=== PATIENT | male | born 1990 | race Caucasian/White ===

== ENCOUNTER 2020-05-16 13:41 | Inpatient (IN) | payer BC, OTHER ==
--- NOTE | 2020-05-16 14:03 | BHS.RME ---
Substance Use & Tx History - Substance Use History Alcohol Substance amount: 1-1.5 pints Frequency of use: Daily Substance route: Oral Date of Last Use: 05/16/20 Nicotine Substance amount: vapes 5% Frequency of use: Daily Substance route: Smoking Date of Last Use: 05/16/20 Physical/Psych/Mental Status - Behavior General Behavior: Decreased activity Eye Contact: Normal - Cooperativeness Cooperativeness: Cooperative - Thinking Thought Processes: Tight Thought content: Future oriented - Physical Health Problems Is patient presently having any pain?: No Does patient presently have any injuries (include location): No Does patient currently have a fever: No CIWA Nausea/Vomitin Muscle Tremors: 4-Moderate,w/Arms Extend Anxiety: 0-No Anxiety, at Ease Agitation: 0-Normal Activity Paroxysmal Sweats: 3 Orientation: 2-Disoriented Date<2 days Tacttile Disturbances: 0-None Auditory Disturbances: 0-None Visual Disturbances: 0-None Headache: 0-None Present CIWA-Ar Total Score: 12
[2020-05-16] MEDS ORDERED: METHOCARBAMOL 500 MG TABLET PO PRN (16:09)
[2020-05-16] MEDS ORDERED: MAG HYDROX/AL HYDROX/SIMETH 30 ML UNIT-DOSE CUP PO PRN (16:09)
[2020-05-16] MEDS ORDERED: ACETAMINOPHEN 325 MG TABLET (FP) PO PRN ×2 (16:09)
[2020-05-16] MEDS ORDERED: ONDANSETRON *ODT* 4 MG TABLET SL PRN (16:09)
[2020-05-16] MEDS ORDERED: MAGNESIUM HYDROX 2400MG/30ML ORAL SUSPENSION 30 ML CUP PO PRN (16:09)
[2020-05-16] MEDS ORDERED: MAGNESIUM CITRATE 300 ML BOTTLE PO PRN (16:09)
[2020-05-16] MEDS ORDERED: IBUPROFEN 400 MG TABLET (FP) PO PRN (16:09)
[2020-05-16] MEDS ORDERED: BISMUTH SUBSALICYLATE 524 MG/30 ML UD PO PRN (16:09)
[2020-05-16] MEDS ORDERED: MENTHOL/PHENOL 1 EACH UD MM PRN (16:09)
--- NOTE | 2020-05-16 16:15 | HP ---
CIWA Score Nausea/Vomitin-No Nausea/No Vomiting Muscle Tremors: 4-Moderate,w/Arms Extend Anxiety: 4-Mod. Anxious/Guarded Agitation: 4-Moderately Restless Paroxysmal Sweats: 2 Orientation: 2-Disoriented Date<2 days Tacttile Disturbances: 0-None Auditory Disturbances: 0-None Visual Disturbances: 0-None Headache: 3-Moderate CIWA-Ar Total Score: 19 - Admission Criteria OASAS Guidelines: Admission for Medically Managed Detox: Requires at least one of the followin. CIWA greater than 12 2. Seizures within the past 24 hours 3. Delirium tremens within the past 24 hours 4. Hallucinations within the past 24 hours 5. Acute intervention needed for co occurring medical disorder 6. Acute intervention needed for co occurring psychiatric disorder 7. Severe withdrawal that cannot be handled at a lower level of care (continued vomiting, continued diarrhea, abnormal vital signs) requiring intravenous medication and/or fluids 8. Admission ROS BHS - HPI Allergies/Adverse Reactions: Allergies Allergy/AdvReac Type Severity Reaction Status Date / Time No Known Allergies Allergy Verified 05/16/20 16:09 History of Present Illness: 30 y.o. male requesting detox from alcohol us e, reports 1 bottle whiskey /day , beer in th mornings before the store opens, reports awakening w/ tremors , has been drinking increasingly more since 2 months ago . Latest use today , current MILY 0.129 , denies seizures, + blackouts , reports falls while intoxicated , most recently 2 weeks ago no injuries . DUI/ DWI in the past . heroin - stopped 2018 , first age of use 25 cocaine intermittently tobacco : vaping PMHX : denies PSHX : denies PSych : depression , denies SI / HI Exam Limitations: Clinical Condition, Intoxication - Review of Systems Constitutional: Loss of Appetite EENT: reports: Other (glasses) Respiratory: reports: No Symptoms reported Cardiac: reports: No Symptoms Reported GI: reports: Diarrhea (after drinking beer), Poor Appetite : reports: No Symptoms Reported Musculoskeletal: reports: No Symptoms Reported Integumentary: reports: See HPI (track matta from remoe IVDU) Neuro: reports: Headache, Tremors Endocrine: reports: No Symptoms Reported Hematology: reports: No Symptoms Reported Psychiatric: reports: Agitated, Anxious, Depressed Patient History - Smoking Cessation Smoking history: Former smoker Have you smoked in the past 12 months: No Initiated information on smoking cessation: No - Substances abused Alcohol Substance route: Oral Frequency: Daily Amount used: 1 bottle of whisky Age of first use: 13 Date of last use: 05/16/20 Admission Physical Exam S - Physical General Appearance: Yes: Moderate Distress, Severe Distress, Intoxicated, Tremorous, Anxious HEENTM: Yes: EOMI, Hearing grossly Normal, Normocephalic, Normal Voice Respiratory: Yes: Chest Non-Tender, Lungs Clear, Normal Breath Sounds, No Respiratory Distress, No Accessory Muscle Use Neck: Yes: No masses,lesions,Nodules, Trachea in good position Cardiology: Yes: Regular Rhythm, Regular Rate, S1, S2, Tachycardia Abdominal: Yes: Soft, Tenderness (LUQ mild discomfort w/ palpation) Back: Yes: Normal Inspection Musculoskeletal: Yes: Gait Steady Extremities: Yes: Normal Inspection, Normal Range of Motion, Non-Tender, Tremors Neurological: Yes: Alert, Motor Strength 5/5, Depressed Affect Integumentary: Yes: Warm - Diagnostic (1) Alcohol intoxication Current Visit: Yes Status: Acute Qualifiers: Complication of substance-induced condition: uncomplicated Qualified Code(s): F10.920 - Alcohol use, unspecified with intoxication, uncomplicated Breathalyzer - Breathalyzer Breathalyzer: 0.129 Urine Drug Screen - Test Device Lot number: [id number] Expiration date: 07/03/21 - Control Is test valid?: Yes - Results Drug screen NEGATIVE: Yes Inpatient Rehab Admission - Rehab Decision to Admit Inpatient rehab admission?: No
[2020-05-16] MEDS ORDERED: METOPROLOL TARTRATE 25 MG TABLET (FP) PO ONE (17:30)
[2020-05-16] MEDS: chlordiazePOXIDE HCL 25 MG CAPSULE PO SCH ×2 (17:32→22:12)
[2020-05-16] MEDS: chlordiazePOXIDE HCL 25 MG CAPSULE PO PRN (19:30)
[2020-05-16] MEDS: MELATONIN 5 MG TABLETS PO SCH (22:12)
[2020-05-16] MEDS: THIAMINE HCL 100 MG TABLET (FP) PO SCH (22:12)
[2020-05-17] MEDS: chlordiazePOXIDE HCL 25 MG CAPSULE PO SCH ×4 (05:23→22:01)
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
--- NOTE | 2020-05-17 09:44 | EKG ---
Test Reason : Blood Pressure : / mmHG Vent. Rate : 090 BPM Atrial Rate : 090 BPM P-R Int : 134 ms QRS Dur : 086 ms QT Int : 346 ms P-R-T Axes : 069 064 026 degrees QTc Int : 423 ms NORMAL SINUS RHYTHM NONSPECIFIC T WAVE ABNORMALITY ABNORMAL ECG NO PREVIOUS ECGS AVAILABLE Confirmed by MD DANIA, KHOA ([id number]) on 05/17/2020 9:43:59 AM Referred By: Confirmed By:KHOA NAJERA MD
--- NOTE | 2020-05-17 10:02 | PN ---
S CIWA - CIWA Score Nausea/Vomitin-Mild Nausea/No Vomiting Muscle Tremors: 4-Moderate,w/Arms Extend Anxiety: 4-Mod. Anxious/Guarded Agitation: 0-Normal Activity Paroxysmal Sweats: 2 Orientation: 0-Oriented Tacttile Disturbances: 0-None Auditory Disturbances: 0-None Visual Disturbances: 2-Mild Sensitivity Headache: 1-Very Mild CIWA-Ar Total Score: 14 BHS Progress Note (SOAP) Subjective: 30 years old male admitted on 05/16/20 for alcohol withdrawal sx management treating with librium detox regiment feeling ok today ate breakfast in room social with peers in day room less tremor than yesterday encourage to discuss aftercare with staff as next level of alcohol recovery Objective: 05/17/20 10:01 Vital Signs - 24 hr 05/16/20 05/16/20 05/16/20 16:27 17:19 18:27 Temperature 98.4 F 97.8 F Pulse Rate 99 H 99 H Respiratory 16 19 Rate Blood Pressure 148/88 135/85 O2 Sat by Pulse 99 98 Oximetry (%) 05/16/20 05/16/20 05/17/20 19:28 20:48 06:11 Temperature 97.3 F L 97.1 F L Pulse Rate 86 75 56 L Respiratory 19 18 18 Rate Blood Pressure 141/84 134/76 124/62 O2 Sat by Pulse 95 100 Oximetry (%) 05/17/20 08:53 Temperature 97.3 F L Pulse Rate 81 Respiratory 20 Rate Blood Pressure 121/62 O2 Sat by Pulse Oximetry (%) 05/17/20 10:02 lab pending Assessment: 05/17/20 10:02 alcohol withdrawal Plan: librium regiment
[2020-05-17] MEDS: PRENATAL VITAMINS W/ FOLIC ACID TABLET (FP) PO SCH (10:07)
[2020-05-17 11:16] LABS: HEMATOCRIT 40.8 % (35.4-49); HEMOGLOBIN 13.4 GM/dL (11.7-16.9); MCH 30.2 pg (25.7-33.7); MCHC 32.9 g/dl (32.0-35.9); MEAN CELL VOLUME 91.8 fl (80-96); MEAN PLT VOLUME 7.6 fl (7.5-11.1); PLATELET COUNT 357 K/MM3 (134-434); RBC 4.45 M/mm3 (4.00-5.60); RDW 14.5 % (11.9-15.9); WHITE BLOOD COUNT 6.5 K/mm3 (4.0-10.0)
[2020-05-17] MEDS ORDERED: NICOTINE POLACRILEX 4 MG GUM BUC PRN (11:38)
[2020-05-17 11:52] LABS: ALBUMIN 3.2 g/dl (3.4-5.0); BILIRUBIN,TOTAL 0.9 mg/dL (0.2-1); BLOOD UREA NITROGEN 11.5 mg/dL (7-18); CALCIUM 8.3 mg/dL (8.5-10.1); CREATININE 0.9 mg/dL (0.55-1.3); POTASSIUM 4.2 mmol/L (3.5-5.1); TOT PROT 6.2 g/dl (6.4-8.2)
[2020-05-17] MEDS: NICOTINE 21 MG/24 HOURS TOPICAL PATCH TD SCH (12:28)
[2020-05-17] MEDS: chlordiazePOXIDE HCL 25 MG CAPSULE PO PRN ×2 (12:28→20:28)
[2020-05-17] MEDS: hydrOXYzine PAMOATE 25 MG CAPSULE (FP) PO PRN ×2 (17:16→22:02)
[2020-05-17] MEDS: MELATONIN 5 MG TABLETS PO SCH (22:01)
[2020-05-17] MEDS: THIAMINE HCL 100 MG TABLET (FP) PO SCH (22:01)
[2020-05-18] MEDS ORDERED: chlordiazePOXIDE HCL 25 MG CAPSULE PO SCH (05:00)
[2020-05-18] MEDS ORDERED: ATENOLOL 25 MG TABLET (FP) PO ONE (10:00)
[2020-05-18] MEDS ORDERED: LORazepam 1 MG TABLET PO PRN (10:45)
[2020-05-18] MEDS: hydrOXYzine PAMOATE 50 MG CAPSULE (FP) PO SCH ×3 (10:49→22:00)
[2020-05-18] MEDS: PRENATAL VITAMINS W/ FOLIC ACID TABLET (FP) PO SCH (10:51)
[2020-05-18] MEDS: NICOTINE 21 MG/24 HOURS TOPICAL PATCH TD SCH (10:51)
[2020-05-18 11:22] VITALS: BMI 27.1
[2020-05-18] MEDS: LORazepam 2 MG TABLET PO SCH ×3 (11:48→22:00)
[2020-05-18] MEDS: ATENOLOL 25 MG TABLET (FP) PO SCH (11:50)
--- NOTE | 2020-05-18 12:39 | PN ---
S CIWA - CIWA Score Nausea/Vomitin-Mild Nausea/No Vomiting Muscle Tremors: 2 Anxiety: 3 Agitation: 2 Paroxysmal Sweats: No Perspiration Orientation: 0-Oriented Tacttile Disturbances: 0-None Auditory Disturbances: 0-None Visual Disturbances: 1-Very Mild Sensitivity Headache: 1-Very Mild CIWA-Ar Total Score: 10 BHS Progress Note (SOAP) Subjective: 30 years old male admitted on 05/16/20 for alcohol withdrawal sx management treating with librium detox regiment mr stubbs states that he has chronic anxiety taking clonopine f ro 4-5 years and was doing well stop klonopin 2-3 years began drinking alcohol requests ativan for alcohol withdrawal management discontinue librium begin ativan to meet the need of the patient mr stubbs requests to be seen by a psychiatrist that his anxiety needed to be addressed increase melatonin to 10 mg po hs increase vistaril to 50mg po q6h belsomra 5 mg po x 1 Objective: 05/18/20 12:48 Vital Signs - 24 hr 05/17/20 05/17/20 05/18/20 16:42 20:35 06:18 Temperature 97.3 F L 97.5 F L 98.1 F Pulse Rate 65 76 54 L Respiratory 20 20 18 Rate Blood Pressure 116/71 119/72 105/57 L O2 Sat by Pulse 98 100 99 Oximetry (%) 05/18/20 08:42 Temperature 97.1 F L Pulse Rate 76 Respiratory 18 Rate Blood Pressure 140/69 O2 Sat by Pulse Oximetry (%) Laboratory Tests 05/16/20 05/17/20 05/17/20 16:50 07:30 07:30 WBC 6.5 RBC 4.45 Hgb 13.4 Hct 40.8 MCV 91.8 MCH 30.2 MCHC 32.9 RDW 14.5 Plt Count 357 MPV 7.6 Sodium Potassium Chloride Carbon Dioxide Anion Gap BUN Creatinine Est GFR (CKD-EPI)AfAm Est GFR (CKD-EPI)NonAf Random Glucose Calcium Total Bilirubin AST ALT Alkaline Phosphatase Total Protein Albumin Syphilis Serology Non-reactive COVID-19 (MAYRA) Not detected 05/17/20 07:30 WBC RBC Hgb Hct MCV MCH MCHC RDW Plt Count MPV Sodium 141 Potassium 4.2 Chloride 105 Carbon Dioxide 31 Anion Gap 5 L BUN 11.5 Creatinine 0.9 Est GFR (CKD-EPI)AfAm 133.30 Est GFR (CKD-EPI)NonAf 115.01 Random Glucose 86 Calcium 8.3 L Total Bilirubin 0.9 AST 15 ALT 20 Alkaline Phosphatase 29 L Total Protein 6.2 L Albumin 3.2 L Syphilis Serology COVID-19 (MAYRA) lab noted continue atenolol for anxiety and bp elevation 05/18/20 12:50 Assessment: 05/18/20 12:49 alcohol withdrawal Plan: ativan regiment
--- NOTE | 2020-05-18 13:51 | PN ---
Psychiatric Progress Note Vital Signs: Vital Signs Period Temp Pulse Resp BP Sys/Lucia Pulse Ox Last 24 Hr 97.1 F-98.1 F 54-76 16-20 105-140/57-72 98-100 Date of Session: 05/18/20 Chief Complaint:: "I'm having anxiety." HPI: Patient admitted to for alcohol and cocaine dependence. ROS: Patient laying in bed. Appears anxious. Alert + Oriented X3. Current Medications: Active Medications Generic Name Dose Route Start Last Admin Trade Name Freq PRN Reason Stop Dose Admin Acetaminophen 650 mg 05/16/20 16:09 Tylenol - PO Q6H PRN PAIN LEVEL 4 - 6 Acetaminophen 650 mg 05/16/20 16:09 Tylenol - PO Q6H PRN FEVER Al Hydroxide/Mg Hydroxide 30 ml 05/16/20 16:09 Mylanta Oral Suspension - PO Q6H PRN DYSPEPSIA Atenolol 25 mg 05/18/20 10:45 05/18/20 11:50 Tenormin - PO 25 mg DAILY LEEANNA Administration Bismuth Subsalicylate 524 mg 05/16/20 16:09 Pepto-Bismol - PO Q1H PRN DIARRHEA Bupropion HCl 300 mg 05/17/20 10:00 05/18/20 10:50 Wellbutrin Xl - PO 300 mg DAILY LEEANNA Administration Eucalyptus/Menthol/Phenol/Sorbitol 1 each 05/16/20 16:09 Cepastat Lozenge - MM 05/22/20 16:09 Q4H PRN SORE THROAT Hydroxyzine Pamoate 50 mg 05/18/20 11:00 05/18/20 10:49 Vistaril - PO 50 mg Q6H LEEANNA Administration Ibuprofen 400 mg 05/16/20 16:09 Motrin - PO Q6H PRN PAIN LEVEL 1 - 3 Lorazepam 1 mg 05/19/20 05:00 Ativan - PO 05/19/20 23:01 0500,1100,1700,2300 LEEANNA Lorazepam 1 mg 05/18/20 10:45 Ativan - PO 05/20/20 00:00 Q4H PRN Symptoms of Withdrawal Lorazepam 2 mg 05/18/20 11:00 05/18/20 11:48 Ativan PO 05/18/20 23:01 2 mg 0500,1100,1700,2300 LEEANNA Administration Lorazepam 0.5 mg 05/20/20 05:00 Ativan - PO 05/20/20 23:01 Q6H LEEANNA Lorazepam 0.5 mg 05/20/20 00:00 Ativan - PO 05/21/20 00:00 Q4H PRN Symptoms of Withdrawal Lorazepam 0.5 mg 05/21/20 05:00 Ativan - PO 05/21/20 05:01 ONCE ONE Magnesium Citrate 300 ml 05/16/20 16:09 Citroma - PO Q48H PRN CONSTIPATION Magnesium Hydroxide 30 ml 05/16/20 16:09 Milk Of Magnesia - PO PRN PRN CONSTIPATION Melatonin 10 mg 05/18/20 12:45 Melatonin PO HS LEEANNA Methocarbamol 500 mg 05/16/20 16:09 05/16/20 19:30 Robaxin - PO 05/22/20 16:09 500 mg Q6H PRN Administration MUSCLE SPASMS Nicotine 21 mg 05/17/20 11:45 05/18/20 10:51 Nicoderm Patch - TD 21 mg DAILY LEEANNA Administration Nicotine Polacrilex 4 mg 05/17/20 11:38 Nicorette Gum - BUC Q2H PRN NICOTINE REPLACEMENT RX Ondansetron HCl 4 mg 05/16/20 16:09 Zofran Odt - SL ONCE PRN ANXIETY Multivit/Folic Acid/Iron 1 tab 05/17/20 10:00 05/18/20 10:51 Vitamins (Sjr) - PO 1 tab DAILY LEEANNA Administration Suvorexant 5 mg 05/18/20 22:00 Belsomra PO 05/18/20 22:01 HS ONE Thiamine HCl 100 mg 05/16/20 22:00 05/17/20 22:01 Vitamin B1 - PO 100 mg HS LEEANNA Administration Medication(s) Change(s): Yes. Will add Gabapentin 200mg TID for anxiety. Current Side Effect: No Lab tests ordered: No Lab tests reviewed: Yes Provider note:: Chart reviewed. Dr. Caceres's note read and appreciated. Mr. Jay reports feeling anxious and restless. He reports speaking to the provider on the unit who was able to discontinue librium and order ativan which he states is more effective. Patient accepted vistaril 50mg this morning but stated that the medication did not help much. Will order Gabapentin 200mg TID for anxiety. Patient in agreement with plan. Verbal consent given. Total face to face time:: 20 Mental Status Exam - Mental Status Exam Alert and Oriented to: Time, Place, Person Cognitive Function: Good Patient Appearance: Well Groomed Mood: Anxious Affect: Mood Congruent Patient Behavior: Cooperative Speech Pattern: Appropriate Voice Loudness: Normal Thought Process: Goal Oriented Thought Disorder: Not Present Hallucinations: Denies Suicidal Ideation: Denies Homicidal Ideation: Denies Insight/Judgement: Poor Sleep: Fair Appetite: Fair Muscle strength/Tone: Normal Gait/Station: Normal Psychiatric Treatment Plan - Problem List (1) Alcohol dependence, uncomplicated Current Visit: Yes (2) Alcohol-induced sleep disorder Current Visit: Yes (3) MDD (major depressive disorder) Current Visit: Yes (4) Nicotine dependence Current Visit: Yes (5) Substance-induced anxiety disorder Current Visit: Yes (6) Cocaine abuse Current Visit: Yes (7) Opioid use disorder, severe, in sustained remission, dependence Current Visit: Yes
[2020-05-18] MEDS: GABAPENTIN 100 MG CAPSULE PO SCH ×2 (15:06→21:57)
[2020-05-18] MEDS: MELATONIN 5 MG TABLETS PO SCH (21:57)
[2020-05-18] MEDS: THIAMINE HCL 100 MG TABLET (FP) PO SCH (21:58)
[2020-05-18] MEDS ORDERED: SUVOREXANT 5 MG TABLET PO ONE (22:00)
[2020-05-19] MEDS ORDERED: chlordiazePOXIDE HCL 10 MG CAPSULE PO PRN
[2020-05-19] MEDS ORDERED: chlordiazePOXIDE HCL 10 MG CAPSULE PO SCH (05:00)
[2020-05-19] MEDS: GABAPENTIN 100 MG CAPSULE PO SCH ×3 (05:33→22:00)
[2020-05-19] MEDS: LORazepam 1 MG TABLET PO SCH ×4 (05:33→22:00)
[2020-05-19] MEDS: hydrOXYzine PAMOATE 50 MG CAPSULE (FP) PO SCH ×4 (05:34→22:00)
[2020-05-19] MEDS: PRENATAL VITAMINS W/ FOLIC ACID TABLET (FP) PO SCH (10:19)
[2020-05-19] MEDS: NICOTINE 21 MG/24 HOURS TOPICAL PATCH TD SCH (10:20)
[2020-05-19] MEDS: ATENOLOL 25 MG TABLET (FP) PO SCH (10:21)
--- NOTE | 2020-05-19 11:45 | PN ---
[facility] CIWA - CIWA Score Nausea/Vomitin-No Nausea/No Vomiting Muscle Tremors: 2 Anxiety: 0-No Anxiety, at Ease Agitation: 0-Normal Activity Paroxysmal Sweats: No Perspiration Orientation: 2-Disoriented Date<2 days Tacttile Disturbances: 0-None Auditory Disturbances: 0-None Visual Disturbances: 0-None Headache: 0-None Present CIWA-Ar Total Score: 4 BHS Progress Note (SOAP) Subjective: Pt has no complaints, asking to review labs Objective: 05/19/20 11:42 PE Gnl: WDWN, in no distress MS: nl mentation Motor: nl Gait: steady Coordination: nl Laboratory Tests 05/16/20 05/17/20 05/17/20 16:50 07:30 07:30 WBC 6.5 RBC 4.45 Hgb 13.4 Hct 40.8 MCV 91.8 MCH 30.2 MCHC 32.9 RDW 14.5 Plt Count 357 MPV 7.6 Sodium Potassium Chloride Carbon Dioxide Anion Gap BUN Creatinine Est GFR (CKD-EPI)AfAm Est GFR (CKD-EPI)NonAf Random Glucose Calcium Total Bilirubin AST ALT Alkaline Phosphatase Total Protein Albumin Syphilis Serology Non-reactive COVID-19 (MAYRA) Not detected 05/17/20 07:30 WBC RBC Hgb Hct MCV MCH MCHC RDW Plt Count MPV Sodium 141 Potassium 4.2 Chloride 105 Carbon Dioxide 31 Anion Gap 5 L BUN 11.5 Creatinine 0.9 Est GFR (CKD-EPI)AfAm 133.30 Est GFR (CKD-EPI)NonAf 115.01 Random Glucose 86 Calcium 8.3 L Total Bilirubin 0.9 AST 15 ALT 20 Alkaline Phosphatase 29 L Total Protein 6.2 L Albumin 3.2 L Syphilis Serology COVID-19 (MAYRA) Home Medication List Medication Instructions Recorded Confirmed Type Bupropion HCl [Wellbutrin Xl] 300 mg PO DAILY 05/16/20 05/16/20 History Active Medications Generic Name Dose Route Start Last Admin Trade Name Freq PRN Reason Stop Dose Admin Acetaminophen 650 mg 05/16/20 16:09 Tylenol - PO Q6H PRN PAIN LEVEL 4 - 6 Acetaminophen 650 mg 05/16/20 16:09 Tylenol - PO Q6H PRN FEVER Al Hydroxide/Mg Hydroxide 30 ml 05/16/20 16:09 Mylanta Oral Suspension - PO Q6H PRN DYSPEPSIA Atenolol 25 mg 05/18/20 10:45 05/19/20 10:21 Tenormin - PO 25 mg DAILY LEEANNA Administration Bismuth Subsalicylate 524 mg 05/16/20 16:09 Pepto-Bismol - PO Q1H PRN DIARRHEA Bupropion HCl 300 mg 05/17/20 10:00 05/19/20 10:21 Wellbutrin Xl - PO 300 mg DAILY LEEANNA Administration Eucalyptus/Menthol/Phenol/Sorbitol 1 each 05/16/20 16:09 Cepastat Lozenge - MM 05/22/20 16:09 Q4H PRN SORE THROAT Gabapentin 200 mg 05/18/20 14:00 05/19/20 05:33 Neurontin - PO 200 mg TID LEEANNA Administration Hydroxyzine Pamoate 50 mg 05/18/20 11:00 05/19/20 10:20 Vistaril - PO 50 mg Q6H LEEANNA Administration Ibuprofen 400 mg 05/16/20 16:09 Motrin - PO Q6H PRN PAIN LEVEL 1 - 3 Lorazepam 1 mg 05/19/20 05:00 05/19/20 10:20 Ativan - PO 05/19/20 23:01 1 mg 0500,1100,1700,2300 LEEANNA Administration Lorazepam 1 mg 05/18/20 10:45 Ativan - PO 05/20/20 00:00 Q4H PRN Symptoms of Withdrawal Lorazepam 0.5 mg 05/20/20 05:00 Ativan - PO 05/20/20 23:01 Q6H LEEANNA Lorazepam 0.5 mg 05/20/20 00:00 Ativan - PO 05/21/20 00:00 Q4H PRN Symptoms of Withdrawal Lorazepam 0.5 mg 05/21/20 05:00 Ativan - PO 05/21/20 05:01 ONCE ONE Magnesium Citrate 300 ml 05/16/20 16:09 Citroma - PO Q48H PRN CONSTIPATION Magnesium Hydroxide 30 ml 05/16/20 16:09 Milk Of Magnesia - PO PRN PRN CONSTIPATION Melatonin 10 mg 05/18/20 12:45 05/18/20 21:57 Melatonin PO 10 mg HS LEEANNA Administration Methocarbamol 500 mg 05/16/20 16:09 05/16/20 19:30 Robaxin - PO 05/22/20 16:09 500 mg Q6H PRN Administration MUSCLE SPASMS Nicotine 21 mg 05/17/20 11:45 05/19/20 10:20 Nicoderm Patch - TD 21 mg DAILY LEEANNA Administration Nicotine Polacrilex 4 mg 05/17/20 11:38 Nicorette Gum - BUC Q2H PRN NICOTINE REPLACEMENT RX Ondansetron HCl 4 mg 05/16/20 16:09 Zofran Odt - SL ONCE PRN ANXIETY Multivit/Folic Acid/Iron 1 tab 05/17/20 10:00 05/19/20 10:19 Vitamins (Sjr) - PO 1 tab DAILY LEEANNA Administration Thiamine HCl 100 mg 05/16/20 22:00 05/18/20 21:58 Vitamin B1 - PO 100 mg HS LEEANNA Administration Vital Signs Temperature 97.5 F L 05/19/20 08:28 Pulse Rate 82 05/19/20 08:28 Respiratory Rate 18 05/19/20 08:28 Blood Pressure 123/69 05/19/20 08:28 O2 Sat by Pulse Oximetry (%) 96 05/19/20 08:28 Assessment: 05/19/20 11:44 1. Alcohol use disorder 2. nicotine dependence Plan: 1. Librium taper, projected completion 05/21, pt asking for early d/c on 05/20, he is doing well clinically, plan d/c in am 2. Nicoderm
[2020-05-19] MEDS: THIAMINE HCL 100 MG TABLET (FP) PO SCH (22:00)
[2020-05-19] MEDS: MELATONIN 5 MG TABLETS PO SCH (22:01)
[2020-05-20] MEDS ORDERED: LORazepam 0.5 MG TABLET PO PRN
[2020-05-20] MEDS ORDERED: chlordiazePOXIDE HCL 10 MG CAPSULE PO SCH (05:00)
[2020-05-20] MEDS: hydrOXYzine PAMOATE 50 MG CAPSULE (FP) PO SCH ×2 (06:29→10:16)
[2020-05-20] MEDS: GABAPENTIN 100 MG CAPSULE PO SCH (06:29)
[2020-05-20] MEDS: LORazepam 0.5 MG TABLET PO SCH ×2 (06:30→10:16)
[2020-05-20 09:05] VITALS: BP 131/71; PULSE 96; TEMP 97.1
[2020-05-20] MEDS: PRENATAL VITAMINS W/ FOLIC ACID TABLET (FP) PO SCH (09:08)
[2020-05-20] MEDS: ATENOLOL 25 MG TABLET (FP) PO SCH (09:08)
[2020-05-20] MEDS: NICOTINE 21 MG/24 HOURS TOPICAL PATCH TD SCH (09:08)
--- NOTE | 2020-05-20 12:34 | DS ---
[facility] Detox Discharge Summary Admission Date: 05/16/20 Discharge Date: 05/20/20 - History Present History: Alcohol Dependence Additional Comments: Pt is medically cleared and discharged today. pt completed the detox protocol. Pt is encouraged to follow-up with an outpatient CD program and also to follow- up with his pmd which he verbalized understanding. Pt is AOX3, in no acute respiratory distress, Full ROM, and ambulatory. Pertinent Past History: h/o alcohol use disorder. - Physical Exam Results Vital Signs: Vital Signs Temperature 97.1 F L 05/20/20 08:28 Pulse Rate 96 H 05/20/20 08:28 Respiratory Rate 18 05/20/20 08:28 Blood Pressure 131/71 05/20/20 08:28 O2 Sat by Pulse Oximetry (%) 98 05/20/20 05:41 Vital Signs 05/20/20 05/20/20 05:41 08:28 Temperature 97.7 F 97.1 F L Pulse Rate 61 96 H Respiratory 18 18 Rate Blood Pressure 95/55 L 131/71 O2 Sat by Pulse 98 Oximetry (%) Laboratory Last Values WBC 6.5 K/mm3 (4.0-10.0) 05/17/20 07:30 RBC 4.45 M/mm3 (4.00-5.60) 05/17/20 07:30 Hgb 13.4 GM/dL (11.7-16.9) 05/17/20 07:30 Hct 40.8 % (35.4-49) 05/17/20 07:30 MCV 91.8 fl (80-96) 05/17/20 07:30 MCH 30.2 pg (25.7-33.7) 05/17/20 07:30 MCHC 32.9 g/dl (32.0-35.9) 05/17/20 07:30 RDW 14.5 % (11.9-15.9) 05/17/20 07:30 Plt Count 357 K/MM3 (134-434) 05/17/20 07:30 MPV 7.6 fl (7.5-11.1) 05/17/20 07:30 Sodium 141 mmol/L (136-145) 05/17/20 07:30 Potassium 4.2 mmol/L (3.5-5.1) 05/17/20 07:30 Chloride 105 mmol/L (98-107) 05/17/20 07:30 Carbon Dioxide 31 mmol/L (21-32) 05/17/20 07:30 Anion Gap 5 MMOL/L (8-16) L 05/17/20 07:30 BUN 11.5 mg/dL (7-18) 05/17/20 07:30 Creatinine 0.9 mg/dL (0.55-1.3) 05/17/20 07:30 Est GFR (CKD-EPI)AfAm 133.30 05/17/20 07:30 Est GFR (CKD-EPI)NonAf 115.01 05/17/20 07:30 Random Glucose 86 mg/dL (74-106) 05/17/20 07:30 Calcium 8.3 mg/dL (8.5-10.1) L 05/17/20 07:30 Total Bilirubin 0.9 mg/dL (0.2-1) 05/17/20 07:30 AST 15 U/L (15-37) 05/17/20 07:30 ALT 20 U/L (13-61) 05/17/20 07:30 Alkaline Phosphatase 29 U/L (45-117) L 05/17/20 07:30 Total Protein 6.2 g/dl (6.4-8.2) L 05/17/20 07:30 Albumin 3.2 g/dl (3.4-5.0) L 05/17/20 07:30 Syphilis Serology Non-reactive (NONREACTIVE) 05/17/20 07:30 COVID-19 (MAYRA) Not detected (Not Detected) 05/16/20 16:50 Labs noted. Pertinent Admission Physical Exam Findings: withdrawal symptoms. - Treatment Hospital Course: Detox Protocol Followed, Detoxed Safely, Responded well, Discharged Condition Good - Medication Discharge Medications: Ambulatory Orders Bupropion HCl [Wellbutrin Xl] 300 mg PO DAILY 05/16/20 - Diagnosis (1) Alcohol withdrawal Status: Acute (2) Alcohol dependence, uncomplicated Status: Chronic (3) Nicotine dependence Status: Chronic - AMA Did Patient Leave Against Medical Advice: No
[2020-05-21] MEDS ORDERED: chlordiazePOXIDE HCL 10 MG CAPSULE PO ONE (05:00)
[2020-05-21] MEDS ORDERED: LORazepam 0.5 MG TABLET PO ONE (05:00)
== END 2020-05-20 09:25 | disposition home or self-care (01) | DRG 897 ==
LOC: YASAS 13:41 → Y3N 16:49
PROVIDERS: ADMIT Allergy & Immunology; ATTEND Allergy & Immunology
PROC: HZ2ZZZZ Detoxification Services for Substance Abuse Treatment (ICD-10-PCS; principal; 2020-05-16)
DX: F10.230 Alcohol dependence with withdrawal, uncomplicated (principal); F14.20 Cocaine dependence, uncomplicated; F11.21 Opioid dependence, in remission; F17.290 Nicotine dependence, other tobacco product, uncomplicated; F10.282 Alcohol dependence with alcohol-induced sleep disorder; F10.280 Alcohol dependence with alcohol-induced anxiety disorder; F32.9 Major depressive disorder, single episode, unspecified; Z91.410 Personal history of adult physical and sexual abuse; Z56.0 Unemployment, unspecified
CPT/HCPCS: 36415; 80053; 85027; 86780; 93005; 93010; U0003